=== PATIENT | female | born 1970 | race Caucasian/White ===

== ENCOUNTER 2022-01-14 11:51 | Emergency (ER) | payer BC, MEDICAID ==
[2022-01-14] MEDS ORDERED: Ondansetron 4 MG/2 ML SDV IVPUSH ONE (12:10)
[2022-01-14] MEDS ORDERED: Ondansetron 4 MG/2 ML SDV ONE (12:12)
[2022-01-14] MEDS ORDERED: GI Cocktail Oral Solution 30 ML PO ONE (12:18)
[2022-01-14] MEDS: Sodium Chloride 0.9% 10 ML Syringe FLUSH PRN ×2 (12:24→13:34)
[2022-01-14] MEDS ORDERED: fentaNYL 100 MCG/2 ML SDV IVPUSH ONE (12:40)
[2022-01-14 12:46] LABS: ANION GAP 16.5 mEq/L (7-13)
[2022-01-14 13:00] LABS: PTT,PARTIAL THROMBOPLSTIN TIME 25.9 SEC (22.0-34.0)
[2022-01-14] MEDS ORDERED: Heparin Sodium 5,000 Units/ML Vial IVPUSH ONE (13:20)
[2022-01-14] MEDS ORDERED: Aspirin 81 MG Tab.Chew PO ONE (13:20)
[2022-01-14] MEDS ORDERED: Heparin Sodium/0.45% NaCl 25,000 UNITS/500 ML BAG IV SCH (13:30)
[2022-01-14 14:05] LABS: CORONAVIRUS COVID-19 NAA NEGATIVE (NEGATIVE)
== END 2022-01-14 14:13 ==
LOC: DL.ED 11:51
DX: I21.4 Non-ST elevation (NSTEMI) myocardial infarction (principal); Z88.8 Allergy status to other drugs, medicaments and biological substances; Z79.899 Other long term (current) drug therapy; Z20.822 Contact with and (suspected) exposure to COVID-19
CPT/HCPCS: 0240U; 36415; 71045; 80053; 81001; 82150; 83605; 83690; 84484; 85025; 85610; 85730; 93005; 93010; 96365; 96375; 99285; A9270; J1644; J2405; J3010; J3490